=== PATIENT | female | born 1945 | race Two or more races ===

== ENCOUNTER 2022-03-30 14:46 | Emergency (ER) | payer OTHER ==
[~2022-03-30] VITALS: Ht 157.5 cm; Wt 52.2 kg
--- NOTE | 2022-03-30 15:08 | NUR ---
[facility] TO ER, MECHANICAL FALL, C/O RIGHT HIP AND BACK PAIN
--- NOTE | 2022-03-30 15:45 | NUR ---
CUT OFF MAN AT BEDSIDE.
--- NOTE | 2022-03-30 16:10 | NUR ---
flight line mechanic at bedside for blood draw.
[2022-03-30] MEDS ORDERED: ONDANSETRON HCL/PF 4 MG/2 ML VIAL ONE ×2 (16:14→17:14)
[2022-03-30] MEDS ORDERED: MORPHINE SULFATE INJ 4 MG/ML DISP.SYRIN ONE ×3 (16:15→19:46)
[2022-03-30 16:21] LABS: BASOPHILS % (AUTO) 0.1 % (0.0-2.0); EOSINOPHILS % (AUTO) 0.7 % (0.0-6.0); HEMATOCRIT 41 % (33-45); HEMOGLOBIN 12.9 g/dL (11.5-14.8); LYMPHOCYTES # (AUTO) 1.2 K/uL (0.8-4.8); LYMPHOCYTES % (AUTO) 13.6 % (20.0-44.0); MEAN CORPUSCULAR HGB CONC 32 g/dl (31.0-36.0); MEAN CORPUSCULAR VOLUME 84 fL (82-100); MONOCYTES # (AUTO) 0.7 K/uL (0.1-1.30); MONOCYTES % (AUTO) 8.2 % (2.0-12.0); NEUTROPHILS # (AUTO) 6.7 K/uL (1.8-8.9); NEUTROPHILS % (AUTO) 77.4 % (43.0-81.0); PLATELET COUNT (AUTO) 242 K/uL (150-450); RED BLOOD CELL COUNT(AUTO) 4.83 MIL/uL (4.0-5.2); WHITE BLOOD COUNT (AUTO) 8.7 K/uL (4.3-11.0)
[2022-03-30] MEDS ORDERED: MORPHINE SULFATE INJ 2 MG/ML DISP.SYRIN IV ONE ×3 (16:30→20:00)
[2022-03-30] MEDS ORDERED: ONDANSETRON HCL/PF 4 MG/2 ML VIAL IVP ONE (16:30)
[2022-03-30 16:47] LABS: ALBUMIN 3.6 g/dL (3.4-5.0); BILIRUBIN,DIRECT 0.1 mg/dL (0.0-0.2); BILIRUBIN,TOTAL 0.3 mg/dL (0.2-1.0); CALCIUM, SERUM 9.7 mg/dL (8.5-10.1); CREATININE 0.8 mg/dL (0.6-1.3); POTASSIUM 4.2 mmol/L (3.5-5.1); TOTAL PROTEIN, SERUM 7.8 g/dL (6.4-8.2)
[2022-03-30] MEDS ORDERED: ONDANSETRON HCL/PF - ER 4 MG/2 ML VIAL IV ONE (17:00)
--- NOTE | 2022-03-30 17:37 | NUR ---
COVID SWAB COLLECTED AND SENT TO LAB
--- NOTE | 2022-03-30 18:15 | NUR ---
CALLED [facility] [phone] DR ARCHER WILL CALL US BACK.
--- NOTE | 2022-03-30 19:23 | NUR ---
PT GOING TO [facility] UNDER DR. LIDIA BOWEN PLEASE CALL [phone] TRANSPORT WILL BE HERE AT 2015 PRN
[2022-03-30] MEDS ORDERED: TDAP [DIPH/PERTUSSIS/TET] 0.5 ML VIAL IM ONE ×2 (20:28→20:30)
--- NOTE | 2022-03-30 20:32 | NUR ---
REPORT GIVEN TO [facility] AND [facility] EMT [place]. PATIENT WILL BE TRANSFERRING TO [facility] VIA AMBULANCE.
[2022-03-30 23:03] VITALS: BP 170/89
== END 2022-03-30 23:05 ==
LOC: ER 14:50
DX: S32.511A Fracture of superior rim of right pubis, initial encounter for closed fracture (principal); S01.01XA Laceration without foreign body of scalp, initial encounter; I10 Essential (primary) hypertension; Z20.822 Contact with and (suspected) exposure to COVID-19; Z98.890 Other specified postprocedural states; Z88.0 Allergy status to penicillin; W17.89XA Other fall from one level to another, initial encounter; Y93.9 Activity, unspecified; Y92.89 Other specified places as the place of occurrence of the external cause; Y99.8 Other external cause status
CPT/HCPCS: 99285; 72125; 96374; 71045; 96375; 87426; 12002; 90471; 93005; 90715; 96376; 73552; 73502; 70450; 72192; 85025; 80048; 83690; 80076; 36415; J2270 ×3; J2405 ×3; A6403; C9803